=== PATIENT | male | born 2000 | race Caucasian/White ===

== ENCOUNTER 2023-09-25 22:59 | Emergency (ER) | payer OTHER, SELFPAY ==
[2023-09-25 23:12] VITALS: BP 125/67; PULSE 69; RESP 18; TEMP 36.6; O2SAT 99; BMI 20.5
[2023-09-25 23:38] LABS: MANUAL DIFF FLAG NO
[2023-09-25 23:39] LABS: Basophils Absolute Auto 0.1 X10*3/uL (0.0-0.2); Basophils Percent Auto 0.9 % (0-2); Eosinophils Percent Auto 0.3 % (0-4); Hematocrit 39.5 % (42.0-52.0); Hemoglobin 13.4 g/dl (14.0-18.0); Imm Gran Abs Auto 0.02 X10*3/uL (0.00-0.03); Imm Gran Pct Auto 0.3 % (0.0-0.4); Mean Corpuscular HGB Conc 33.9 g/dl (31.0-36.0); Mean Corpuscular Hemoglobin 32.4 pg (27.0-33.0); Mean Corpuscular Volume 95.4 fL (80.0-98.0); Mean Platelet Volume 10.6 fL (9.4-12.4); Monocytes Absolute Auto 0.5 X10*3/uL (0.1-1.2); Monocytes Percent Auto 6.9 % (2-11); Neutrophils Absolute Auto 5.1 x10*3/uL (2.0-8.3); Neutrophils Percent Auto 76.6 % (45-73); Platelet Count 231 X10*3/uL (160-400); Red Blood Count 4.14 X10*6/uL (4.60-5.80); Red Cell Distribution Width 11.6 % (11.0-16.0); White Blood Count 6.7 X10*3/uL (4.8-10.8)
[2023-09-25 23:49] LABS: Ethanol 138 mg/dL
[2023-09-25 23:52] LABS: Alanine Aminotransferase 16 U/L (0-40); Albumin Level 4.4 g/dL (3.5-5.0); Alkaline Phosphatase 81 U/L (39-117); Anion Gap 12 (12-20); Aspartate Amino Transferase 18 U/L (5-37); Bilirubin Total 0.5 mg/dL (0.0-1.0); Blood Urea Nitrogen 11 mg/dL (9-16); Calcium 9.1 mg/dL (8.4-10.2); Carbon Dioxide 25 mmol/L (22-29); Chloride 106 mmol/L (96-108); Creatinine Clr Calc Pharmacy 140.6; Estimated Glomerular Filt Rate > 60; Glucose Random 84 mg/dL (60-115); Potassium 3.9 mmol/L (3.3-5.1); Sodium 139 mmol/L (135-145)
[2023-09-26 01:39] VITALS: BP 113/75; PULSE 70; RESP 14; TEMP 36.7; O2SAT 100
[2023-09-26 02:03] LABS: Amphetamine Screen Urine Not Detected (Not Detect); Barbiturates, Urine Not Detected (Not Detect); Benzodiazepines Screen Urine Not Detected (Not Detect); Cannabinoid Screen Urine POSITIVE (Not Detect); Cocaine Screen Urine Not Detected (Not Detect); Fentanyl, urine Not Detected (Not Detect); Opiate Screen Urine Not Detected (Not Detect); Phencyclidine Screen Urine Not Detected (Not Detect)
[2023-09-26 02:18] LABS: Troponin-I High Sensitivity < 2.7 ng/L (<3.5-35.0)
--- NOTE | 2023-09-26 02:36 | ECG_ITS ---
Test Reason : SYNCOPE Blood Pressure : / mmHG Vent. Rate : 054 BPM Atrial Rate : 054 BPM P-R Int : 138 ms QRS Dur : 090 ms QT Int : 404 ms P-R-T Axes : 043 086 062 degrees QTc Int : 383 ms Sinus bradycardia Early repolarization Otherwise normal ECG No previous ECGs available Referred By: Rosalva Ponce Electronically Signed By:MARIANNE WEST MD
--- NOTE | 2023-09-26 02:44 | ED.GENADULT ---
HPI - General Adult General Chief complaint: General Medical Stated complaint: passed out about 20 mins ago Time Seen by Provider: 09/26/23 02:34 Source: patient Mode of arrival: ambulatory Limitations: no limitations History of Present Illness HPI narrative: patient comes to the emergency room after having a syncopal episode. Patient states that he was in a concert, suddenly he had hot flash feeling, started becoming faint, people were able to help him down to the ground. Patient states that he did not pass out completely, he was just lightheaded. Patient admits that he has been using marijuana and alcohol at the concert. Patient denies any head strikes, denies using any other drugs. At this time, patient states that he feels well. Patient never had chest pain or shortness of breath. patient denies any cardiac or lung problems. Patient states that approximately 5 years ago he had a seizure secondary to using a large amount of marijuana Related Data Allergies Allergy/AdvReac Type Severity Reaction Status Date / Time amoxicillin Allergy Unknown Hives Verified 09/25/23 23:11 Review of Systems Review of Systems: Constitutional : No Weight loss, No Fever, No Chills, No Night Sweats, No Fatigue, No Malaise ENT/Mouth : No Hearing loss, No Ear Pain, No Nasal Congestion, No Sinus Pain, No Hoarseness, No sore throat, No Rhinorrhea, No Swallowing Difficulty Eyes: No Eye Pain, No Swelling, No Redness, No Foreign Body, No Discharge, No Vision Changes Cardiovascular : No Chest Pain, No SOB, No Dyspnea on Exertion, No Orthopnea, No Edema, No Palpitations Respiratory : No Cough, No Sputum, No Wheezing, No Smoke Exposure, No Dyspnea Gastrointestinal : No Nausea, No Vomiting, No Diarrhea, No Constipation, No abdominal Pain, No Hematochezia, No Melena Genitourinary : no irregular bleeding, No Dysuria, No Urinary Frequency, No Hematuria, No Urinary Incontinence, No Urgency, No Flank Pain, No Urinary Flow Changes, No Hesitancy Musculoskeletal : No joint pain, No Myalgias, No Joint Swelling Skin : No Skin Lesions, No rash Neuro : No Weakness, No Numbness, No Paresthesias, Patient had a near syncopal episode, no headache Psych : No Anxiety/Panic, No Depression, No SI/HI/AH/VH, admits using marijuana and alcohol earlier today Heme/Lymph: No Bruising, No Bleeding,No Lymphadenopathy Endocrine : No Polyuria, No Polydipsia, No Temperature Intolerance [facility] Social History Social History Advance Directives: No Advance Directives Information Provided: No Physical Exam ED Vital Signs: Vital Signs - 24 hr 09/25/23 23:12 09/26/23 01:39 09/26/23 02:54 Temperature 97.9 F 98.0 F Pulse Rate 69 70 78 Respiratory Rate 18 14 Blood Pressure 125/67 113/75 113/74 Pulse Oximetry 99 100 Oxygen Delivery Method Room Air Room Air 09/26/23 02:55 09/26/23 02:56 Temperature Pulse Rate 59 66 Respiratory Rate Blood Pressure 117/70 116/70 Pulse Oximetry Oxygen Delivery Method BMI result Body Mass Index 20.5 Medical Decision Making Medical Decision Making [facility] Narrative: - my interpretation of labs: Normal hematology and chemistry, troponin negative. Patient tested positive for alcohol and THC - orthostatic vitals: Negative - D-dimer: Negative -EKG shows bradycardia. However, patient is a young fit gentleman, normal for age and fitness level -patient likely passed out due to the combination of marijuana and alcohol. However, discussed with the patient if he has any further symptoms or recurrence of near syncopal episodes, to follow up with his primary care physician and Cardiology as he may need a Holter monitor. Differential Diagnosis Differential Diagnoses: The differential diagnosis associated with the presentation includes (Near syncope, syncope, ACS, alcohol intoxication, polysubstance abuse) Admission/Observation Consideration of admission/observation: Escalation of care including admission/observation considered (Given patient's presentation and history, admission was considered) Lab Data [facility] Lab Attestation statement: I reviewed the patient's lab results. 09/25/23 23:32 09/25/23 23:32 Labs: Lab Results 09/25/23 09/26/23 09/26/23 Range/Units 23:32 01:46 01:47 WBC 6.7 (4.8-10.8) X10*3/uL RBC 4.14 L (4.60-5.80) X10*6/uL Hgb 13.4 L (14.0-18.0) g/dl Hct 39.5 L (42.0-52.0) % MCV 95.4 (80.0-98.0) fL MCH 32.4 (27.0-33.0) pg MCHC 33.9 (31.0-36.0) g/dl RDW 11.6 (11.0-16.0) % Plt Count 231 (160-400) X10*3/uL MPV 10.6 (9.4-12.4) fL Immature Gran % (Auto) 0.3 (0.0-0.4) % Neut % (Auto) 76.6 H (45-73) % Lymph % (Auto) 15.0 L (20-40) % Simpson % (Auto) 6.9 (2-11) % Eos % (Auto) 0.3 (0-4) % Baso % (Auto) 0.9 (0-2) % Lymph # (Auto) 1.0 L (1.2-4.9) X10*3/uL Simpson # (Auto) 0.5 (0.1-1.2) X10*3/uL Eos # (Auto) 0.0 (0.0-0.4) X10*3/uL Baso # (Auto) 0.1 (0.0-0.2) X10*3/uL Abs Immat Gran (auto) 0.02 (0.00-0.03) X10*3/uL Absolute Neuts (auto) 5.1 (2.0-8.3) x10*3/uL Absolute Nucleated RBC 0.000 (0.0-0.012) X10*3/uL Nucleated RBC % (auto) 0.0 (0.0-0.2) /100WBC D-Dimer High Sensitivty < 150 NG/ML Sodium 139 (135-145) mmol/L Potassium 3.9 (3.3-5.1) mmol/L Chloride 106 (96-108) mmol/L Carbon Dioxide 25 (22-29) mmol/L Anion Gap 12 (12-20) BUN 11 (9-16) mg/dL Creatinine 0.86 (0.5-1.4) mg/dL Estim Creat Clear Calc 140.6 Estimated GFR > 60 Random Glucose 84 (60-115) mg/dL Calcium 9.1 (8.4-10.2) mg/dL Total Bilirubin 0.5 (0.0-1.0) mg/dL AST 18 (5-37) U/L ALT 16 (0-40) U/L Alkaline Phosphatase 81 (39-117) U/L Troponin I High Sens < 2.7 (<3.5-35.0) ng/L Total Protein 7.0 (6.5-8.0) g/dL Albumin 4.4 (3.5-5.0) g/dL Urine Opiates Screen Not Detected (Not Detect) Urine Fentanyl Screen Not Detected (Not Detect) Ur Barbiturates Screen Not Detected (Not Detect) Ur Phencyclidine Scrn Not Detected (Not Detect) Ur Amphetamines Screen Not Detected (Not Detect) U Benzodiazepines Scrn Not Detected (Not Detect) Urine Cocaine Screen Not Detected (Not Detect) U Marijuana (THC) Screen POSITIVE H (Not Detect) Ethyl Alcohol 138 mg/dL Independent Interpretation I performed an independent interpretation of an: EKG (My interpretation of EKG: Sinus bradycardia, heart rate 54, no ST segment depression of the patient, no T-wave inversion, QTC 383) Critical Care Time Critical Care Time Critical Care Time: Yes Total Critical Care Time: 60 Attestation: I have personally provided critical care time. Time includes review of lab data, radiology results, discussion with consultants, and monitoring for potential decompensation. Intervention performed as documented. Discharge Plan Discharge Clinical Impression: Near syncope Patient Disposition: Home, Self-Care Instructions: Near Syncope (ED) Additional Instructions: Please follow-up with your primary care physician tomorrow. If you have any worsening or new symptoms, please return to the emergency room or call 911
[2023-09-26 02:54] VITALS: BP 113/74; PULSE 78
[2023-09-26 02:55] VITALS: BP 117/70; PULSE 59
[2023-09-26 02:56] VITALS: BP 116/70; PULSE 66
[2023-09-26 03:35] LABS: D Dimer High Sensitivity < 150 NG/ML
--- NOTE | 2023-09-26 04:09 | PC.NURSE ---
pt calm and cooperative. a&o x 4. pt mother at bedside. pt ambulatory at discharge. pt provided with discharge packet. pt verbalized understanding of discharge plan
== END 2023-09-26 04:11 | disposition home or self-care (01) ==
PROVIDERS: Emergency Provider Emergency Medicine
DX: R55 Syncope and collapse (principal); R00.1 Bradycardia, unspecified; F10.129 Alcohol abuse with intoxication, unspecified; Y90.6 Blood alcohol level of 120-199 mg/100 ml; Z79.899 Other long term (current) drug therapy
CPT/HCPCS: 36415; 80053; 80307; 84484; 85025; 85379; 93005; 99284